=== PATIENT | female | born 2000 | race Caucasian/White ===

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

== ENCOUNTER 2021-03-25 19:43 | Outpatient (CLI) | payer MEDICAID, OTHER ==
[2021-03-25 20:09] VITALS: BP 105/59
[2021-03-25 21:02] LABS: Bacteria,Urine 2+ /HPF (Negative); Mucus,Urine FEW /HPF
[2021-03-25 21:03] LABS: Bilirubin,Urine NEG (Negative); Blood,Urine NEG (Negative); Color,Urine Yellow (Yellow); Protein,Urine <15 mg/dL mg/dL (Negative); Urobilinogen,Urine < 2.0 mg/dL (<2.0)
[2021-03-25] MEDS ORDERED: LACTATED RINGERS 1,000 ML IV ONE (21:22)
--- NOTE | 2021-03-25 22:10 | Ultrasound Report ---
ULTRASOUND OBSTETRIC LIMITED INDICATION / CLINICAL INFORMATION: cervical length. Clinical Gestational Age (GA): 24.4 weeks.days COMPARISON: 01/18/2016 FINDINGS: Cervical length measures 4.7 cm. ADDITIONAL FINDINGS: No additional findings and is very limited exam. IMPRESSION: 1. Cervical length measures 4.7 cm. Signer Name: Jose Orozco MD Signed: 03/25/2021 10:06 PM Workstation Name: [email or web address]
== END 2021-03-25 21:47 | disposition home or self-care (01) ==
LOC: TRG 19:43 → APU 19:55 → TRG 21:47
PROVIDERS: ATTEND Obstetrics & Gynecology
DX: O47.02 False labor before 37 completed weeks of gestation, second trimester (principal); Z3A.24 24 weeks gestation of pregnancy
CPT/HCPCS: 59025; 76817; 81001

== ENCOUNTER 2021-06-13 14:47 | Outpatient (CLI) | payer MEDICAID ==
[2021-06-13 15:38] VITALS: BP 124/60
[2021-06-13] MEDS ORDERED: LACTATED RINGERS 1,000 ML IV ONE (15:44)
[2021-06-13] MEDS ORDERED: LACTATED RINGERS 1,000 ML ONE (15:47)
[2021-06-13 17:26] LABS: Bacteria,Urine 2+ /HPF (Negative); Bilirubin,Urine NEG (Negative); Blood,Urine NEG (Negative); Color,Urine Yellow (Yellow); Mucus,Urine FEW /HPF; Protein,Urine <15 mg/dL mg/dL (Negative); Urobilinogen,Urine < 2.0 mg/dL (<2.0)
== END 2021-06-13 19:22 | disposition home or self-care (01) ==
LOC: TRG 14:47 → APU 14:49 → TRG 19:22
PROVIDERS: ATTEND Obstetrics & Gynecology
DX: O26.893 Other specified pregnancy related conditions, third trimester (principal); R10.9 Unspecified abdominal pain; M54.9 Dorsalgia, unspecified; Z3A.36 36 weeks gestation of pregnancy
CPT/HCPCS: 59025; 81001; 96361; 96365; J0690; J7120; 96360

== ENCOUNTER 2021-06-23 02:40 | Outpatient (CLI) | payer MEDICAID ==
[2021-06-23 03:52] VITALS: BP 120/57
== END 2021-06-23 03:59 | disposition home or self-care (01) ==
LOC: TRG 02:40 → APU 02:42 → TRG 03:59
PROVIDERS: ATTEND Obstetrics & Gynecology
DX: Z34.93 Encounter for supervision of normal pregnancy, unspecified, third trimester (principal); Z3A.37 37 weeks gestation of pregnancy
CPT/HCPCS: 59025

== ENCOUNTER 2021-06-24 14:22 | Outpatient (CLI) | payer MEDICAID ==
[2021-06-24 14:43] VITALS: BP 128/64
[2021-06-24] MEDS ORDERED: LACTATED RINGERS 1,000 ML IV ONE (15:00)
[2021-06-24 15:35] LABS: Bacteria,Urine 1+ /HPF (Negative); Bilirubin,Urine NEG (Negative); Blood,Urine NEG (Negative); Color,Urine Yellow (Yellow); Mucus,Urine FEW /HPF; Urobilinogen,Urine < 2.0 mg/dL (<2.0)
== END 2021-06-24 15:20 | disposition home or self-care (01) ==
LOC: TRG 14:22 → APU 14:24 → TRG 15:20
PROVIDERS: ATTEND Obstetrics & Gynecology
DX: O36.8130 Decreased fetal movements, third trimester, not applicable or unspecified (principal); Z3A.37 37 weeks gestation of pregnancy
CPT/HCPCS: 59025; 81001

== ENCOUNTER 2021-07-14 13:13 | Inpatient (IN) | payer MEDICAID ==
[2021-07-14] MEDS ORDERED: BUTORPHANOL 2 MG/1 ML INJ IV PRN ×2 (15:25)
[2021-07-14] MEDS ORDERED: LIDOCAINE (2%) 20 MG/1 ML VIAL 20 ML MDV INFILTRATI ONE (15:25)
[2021-07-14] MEDS ORDERED: ePHEDrine SULFATE 50 MG/1 ML INJ IV PRN ×2 (15:25→19:00)
[2021-07-14] MEDS ORDERED: MINERAL OIL 30 ML ORAL LIQD PO PRN (15:25)
[2021-07-14] MEDS ORDERED: OXYTOCIN 10 UNIT/1 ML INJ IM PRN (15:25)
[2021-07-14] MEDS ORDERED: CARBOPROST TROMETHAMINE 250 MCG/1 ML INJ IM PRN (15:25)
[2021-07-14] MEDS ORDERED: NALOXONE 0.4 MG/1 ML INJ IV PRN (15:25)
[2021-07-14] MEDS ORDERED: ACETAMINOPHEN 325 MG TAB PO PRN (15:25)
[2021-07-14] MEDS ORDERED: miSOPROStol 200 MCG TAB PR PRN (15:25)
[2021-07-14] MEDS ORDERED: TERBUTALINE 1 MG/1 ML INJ SUB-Q PRN (15:25)
[2021-07-14] MEDS ORDERED: METHYLERGONOVINE MALEATE 0.2 MG/ML VIAL IM PRN (15:25)
[2021-07-14] MEDS ORDERED: ONDANSETRON 4 MG/2 ML INJ IV PRN (15:25)
[2021-07-14] MEDS ORDERED: LOPERAMIDE 2 MG CAP PO PRN (15:25)
[2021-07-14] MEDS ORDERED: fentaNYL 100 MCG/2 ML INJ IV PRN (15:25)
[2021-07-14] MEDS ORDERED: LACTATED RINGERS 1,000 ML IV SCH (15:30)
[2021-07-14 15:51] LABS: Hematocrit 31.2 % (30.3-42.9); Hemoglobin 10.2 gm/dl (10.1-14.3); Mean Corpuscular HGB Conc 33 % (30-34); Mean Corpuscular Volume 75 fl (79-97); Platelet Count 240 K/mm3 (140-440); Red Blood Count 4.15 M/mm3 (3.65-5.03); Red Cell Distribution Width 16.5 % (13.2-15.2)
[2021-07-14] MEDS ORDERED: OXYTOCIN DRIP 30 UNITS/500 ML BAG IV SCH ×2 (16:00)
--- NOTE | 2021-07-14 16:58 | History and Physical Report ---
History of Present Illness Date of examination: 07/14/21 Date of admission: 07/14/21 13:14 Chief complaint: contractions History of present illness: Pt is a 20 year old MARYAN 07/11/21 at 40w3d who presents with regular painful contractions and advanced cervical dilation of 5 cm. She denies vaginal bleeding or leakage of fluid. She has had care at [facility] [employer] since 15 wks complicated by obesity, genital herpes without lesion or prodrome and gonorrhea and chlamydia treated with negative test of cure on 07/01/21. She is GBS negative. Past History Past Medical History: no pertinent history Past Surgical History: no surgical history [employer] History: chlamydia (treated with negative test of cure ), gonorrhea (treated with negative test of cure ), herpes Family/Genetic History: none Social history: no significant social history, smoking (former use ) - Obstetrical History Expected Date of Delivery: 07/11/21 Actual Gestation: 40 Week(s) 3 Day(s) : 3 Para: 2 Hx # Term Pregnancies: 2 Number of Pregnancies: 0 Spontaneous Abortions: 0 Induced : 0 Number of Living Children: 2 Medications and Allergies Allergies Allergy/AdvReac Type Severity Reaction Status Date / Time No Known Allergies Allergy Verified 06/12/14 20:45 Active Meds: Active Medications Acetaminophen (Acetaminophen 325 Mg Tab) 650 mg PO Q4H PRN PRN Reason: Pain, Mild (1-3) Butorphanol Tartrate (Butorphanol 2 Mg/1 Ml Inj) 1 mg IV Q2H PRN PRN Reason: Pain, Moderate(4-6) LABOR PAIN Butorphanol Tartrate (Butorphanol 2 Mg/1 Ml Inj) 2 mg IV Q2H PRN PRN Reason: Pain , Severe (7-10) Carboprost Tromethamine (Carboprost Tromethamine 250 Mcg/1 Ml Inj) 250 mcg IM ONCE PRN PRN Reason: Uterine Bleeding Ephedrine Sulfate (Ephedrine Sulfate 50 Mg/1 Ml Inj) 10 mg IV Q2M PRN PRN Reason: Hypotension Fentanyl (Fentanyl 100 Mcg/2 Ml Inj) 100 mcg IV Q2H PRN PRN Reason: Pain,Severe (7-10) LABOR PAIN Oxytocin/Sodium Chloride (Pitocin/Ns 30 Unit/500ml) 30 units in 500 mls @ 2 mls/hr IV TITR DEVIN; Protocol Lactated Ringer's (Lactated Ringers) 1,000 mls @ 125 mls/hr IV DIRECT DEVIN Oxytocin/Sodium Chloride (Pitocin/Ns 30 Unit/500ml) 30 units in 500 mls @ 40 mls/hr IV TITR DEVIN; Protocol Loperamide HCl (Loperamide 2 Mg Cap) 2 mg PO ONCE PRN PRN Reason: give with Hemabate Methylergonovine Maleate (Methylergonovine Maleate 0.2 Mg/Ml Vial) 0.2 mg IM ONCE PRN PRN Reason: Uterine Bleeding Mineral Oil (Mineral Oil 30 Ml Oral Liqd) 30 ml PO QHS PRN PRN Reason: Constipation Misoprostol (Misoprostol 200 Mcg Tab) 800 mcg IN ONCE PRN PRN Reason: Uterine Bleeding Naloxone HCl (Naloxone 0.4 Mg/1 Ml Inj) 0.1 mg IV Q2MIN PRN PRN Reason: Res Rate </= 8 or 02 SAT < 92% Ondansetron HCl (Ondansetron 4 Mg/2 Ml Inj) 4 mg IV Q8H PRN PRN Reason: Nausea And Vomiting Oxytocin (Oxytocin 10 Unit/1 Ml Inj) 10 unit IM ONCE PRN PRN Reason: Uterine Bleeding Terbutaline Sulfate (Terbutaline 1 Mg/1 Ml Inj) 0.25 mg SUB-Q ONCE PRN PRN Reason: Hyperstimulation/Hypertonicity Review of Systems All systems: negative - Vital Signs Vital signs: Vital Signs Pulse BP Pulse Ox 76 131/72 98 07/14/21 14:14 07/14/21 14:14 07/14/21 14:14 Temp Pulse Resp BP Pulse Ox 98.7 F 92 H 16 116/64 98 07/14/21 14:15 07/14/21 16:28 07/14/21 14:15 07/14/21 16:26 07/14/21 16:28 - Physical Exam Breasts: Positive: deferred Abdomen: Positive: soft (obese, gravid ) Genitourinary (Female): Positive: normal external genitalia Uterus: Positive: enlarged (gravid, obesity ) Extremities: Positive: edema (trace) - Obstetrical FHR: auscultation normal Uterine Contraction Monitor Mode: External Cervical Dilatation: 7 Cervical Effacement Percentage: 90 station: -2 Uterine Contraction Pattern: Regular Uterine Tone Measurement Phase: Resting Uterine Contraction Intensity: Strong/Firm Results Result Diagrams: 07/14/21 14:45 Abnormal lab results 07/14/21 Range/Units 14:45 MCV 75 L (79-97) fl MCH 25 L (28-32) pg RDW 16.5 H (13.2-15.2) % All other labs normal. Assessment and Plan A: IUP at 40w4d Active Labor Morbid Obesity Genital herpes without lesion or prodrome Gonorrhea and chlamydia treated with negative test of cure on 07/01/21 GBS Negative P: Admit to labor and delivery Routine admission labs AROM- meconium stained fluid- NICU aware Continue routine intrapartum care Closely monitor maternal and status
[2021-07-14] MEDS ORDERED: NALOXONE 2 MG/2 ML INJ IV PRN (19:00)
--- NOTE | 2021-07-14 19:00 | Anesthesia Consultation ---
Anesthesia Consult and Med Hx Date of service: 07/14/21 - Airway Anesthetic Teeth Evaluation: Good ROM Head & Neck: Adequate Mental/Hyoid Distance: Adequate Mallampati Class: Class II Intubation Access Assessment: Probably Good - Pulmonary Exam CTA: Yes - Cardiac Exam Cardiac Exam: RRR - Pre-Operative Health Status ASA Pre-Surgery Classification: ASA3 Proposed Anesthetic Plan: Epidural - Pulmonary Hx Asthma: No COPD: No Hx Pneumonia: No - Cardiovascular System Hx Hypertension: No - Central Nervous System Hx Seizures: No Hx Psychiatric Problems: No - Endocrine Hx Renal Disease: No Hx End Stage Renal Disease: No Hx Hypothyroidism: No Hx Hyperthyroidism: No - Hematic Hx Anemia: No Hx Sickle Cell Disease: No - Other Systems Hx Alcohol Use: No Hx Obesity: Yes
--- NOTE | 2021-07-14 19:50 | Progress Note ---
Labor Epidural - Labor Epidural Start Time: 19:21 Stop Time: 19:26 Performed by:: ZEN JOY Procedure: Patient is requesting epidural for labor pain. H&P, and labs reviewed. Procedure explained, questions answered, consent obtained. Patient in sitting position with blood pressure cuff and pulse ox on and working. Timeout performed immediately before start of procedure. Sterile chlorahexadine 0.5% prep/drape. 3 mL 1% lidocaine skin wheal at L[3]-L[4]. 17-gauge tuohy epidural needle advanced to [id number] with saline at [7] cm. 25-gauge spinal needle advanced until clear, free-flowing CSF. Intrathecal dexmedetomidine [5] mcg administered and needle removed. Epidural catheter advanced to [12] cm, negative aspiration for blood and csf, negative test dose 3 ml 1.5% lidocaine with epinephrine. Sterile sponge and tegaderm applied, followed by tape reinforcement. Patient tolerated procedure well.
[2021-07-14] MEDS ORDERED: fentaNYL-BUPIV 2 MCG/ML-0.125% 200 MCG/100 ML BAG EPIDURAL SCH (20:00)
--- NOTE | 2021-07-14 23:02 | Procedure Note ---
OB Delivery Note - Delivery Date of Delivery: 07/14/21 Surgeon: JOSSUE ALCAZAR Estimated blood loss: other (400 mL) - Vaginal Delivery presentation: vertex Delivery position: OA Intrapartum events: PROM->1hr before delivery, meconium, uterine atony (misoprostol 800 mcg per rectum ) Delivery induction: none Delivery augmentation: rupture of membranes, pitocin Delivery monitor: external FHT, external uterine Route of delivery: Delivery placenta: spontaneous Episiotomy: none Delivery laceration: 1st degree (hemostatic without repair ) Anesthesia: epidural - A at 1 minute: 8 at 5 minutes: 9 Infant Gender: Female (4100g (9lb 1oz) @ 22:40 pm)
[2021-07-15] MEDS ORDERED: BENZOCAINE/MENTHOL 20/0.5% TOP SPRAY 56 GM TP PRN (02:47)
[2021-07-15] MEDS ORDERED: diphenhydrAMINE 25 MG CAP PO PRN (02:47)
[2021-07-15] MEDS ORDERED: LANOLIN/ZINC/DIMETHICONE (LANSINOH) 7 GM TP PRN ×2 (02:47)
[2021-07-15] MEDS ORDERED: OXYTOCIN DRIP 30 UNITS/500 ML BAG IV SCH (02:47)
[2021-07-15] MEDS ORDERED: ONDANSETRON 4 MG/2 ML INJ IV PRN (02:47)
[2021-07-15] MEDS ORDERED: PROMETHAZINE 25 MG RECT SUPP PR PRN (02:47)
[2021-07-15] MEDS ORDERED: WITCH HAZEL/ GLYCERIN PAD TP PRN (02:47)
[2021-07-15] MEDS ORDERED: MAGNESIUM HYDROXIDE (MOM) ORAL LIQD UDC PO PRN (02:47)
[2021-07-15] MEDS ORDERED: PROMETHAZINE 25 MG TAB PO PRN (02:47)
[2021-07-15] MEDS: IBUPROFEN 600 MG TAB PO SCH ×2 (04:45→16:10)
--- NOTE | 2021-07-15 08:25 | Progress Note ---
Assessment and Plan - Patient Problems (1) Vaginal delivery Current Visit: Yes Status: Acute Plan to address problem: Routine care Subjective - Subjective Date of service: 07/15/21 Interval history: The patient reports some uterine cramping. Her bleeding is improving. Patient reports: appetite normal, voiding normally, pain well controlled : doing well Objective - Vital Signs Latest vital signs: Vital Signs Temp Pulse Resp BP BP Pulse Ox Pulse Ox 07/15/21 06:23 98.5 F 87 18 116/64 97 07/15/21 04:45 18 07/15/21 02:45 98.7 F 88 19 118/73 97 07/15/21 02:35 99 07/15/21 02:20 99 F 07/15/21 01:21 104 H 122/57 07/15/21 00:36 78 121/56 07/15/21 00:21 86 129/62 07/15/21 00:06 77 138/62 07/14/21 23:51 77 136/73 07/14/21 23:48 98.2 F 07/14/21 23:36 139 H 123/74 07/14/21 23:21 93 H 122/60 07/14/21 23:15 93 H 112/60 07/14/21 22:51 98 H 132/57 07/14/21 22:48 98 H 95 07/14/21 22:44 93 H 136/62 07/14/21 22:43 94 H 96 07/14/21 22:38 124 H 171/93 98 07/14/21 22:33 99 H 98 07/14/21 22:28 91 H 97 07/14/21 22:23 77 94 07/14/21 22:21 72 119/63 07/14/21 22:18 81 97 07/14/21 22:13 77 98 07/14/21 22:08 76 97 07/14/21 22:06 78 105/55 07/14/21 22:03 76 98 07/14/21 21:58 81 99 07/14/21 21:53 84 98 07/14/21 21:52 78 128/73 07/14/21 21:50 98.4 F 07/14/21 21:48 83 98 07/14/21 21:43 104 H 99 07/14/21 21:38 93 H 98 10/17/21 21:37 97 H 122/97 17/21 21:33 82 99 1721 21:28 81 99 1721 21:23 82 99 1721 21:22 78 112/59 17/21 21:18 86 100 1721 21:13 74 99 1721 21:08 86 97 1721 21:07 82 109/53 1721 21:03 81 96 1721 20:58 69 96 17/21 20:53 72 97 1721 20:51 66 90/51 17/21 20:48 75 96 17/21 20:43 78 98 1721 20:38 80 98 1721 20:36 70 98/57 17/21 20:33 68 97 1721 20:28 84 98 1721 20:23 69 97 1721 20:21 77 92/53 1721 20:18 79 98 07/14/21 20:13 72 97 1721 20:08 78 97 21 20:06 75 95/51 17/21 20:03 73 98 21 19:58 80 98 1721 19:53 79 97 1721 19:51 76 95/53 17/21 19:48 90 99 1721 19:43 79 98 1721 19:38 85 95 1721 19:37 80 105/53 94 1721 19:34 82 105/53 1721 19:33 85 95 17/21 19:30 85 116/58 17/21 19:28 95 H 98 17/21 19:27 93 H 125/69 17/21 19:26 93 H 134/72 17/21 19:23 93 H 97 17/21 19:15 99 17/21 17:56 74 125/72 17/21 16:28 92 H 98 17/21 16:26 82 116/64 17/21 16:23 87 95 17/21 16:18 90 97 17/21 16:13 80 97 07/14/21 16:08 83 96 07/14/21 16:03 78 97 07/14/21 15:58 88 97 07/14/21 15:53 88 97 07/14/21 15:52 79 124/82 07/14/21 15:45 100 07/14/21 15:19 86 97 07/14/21 15:16 94 H 94 07/14/21 15:14 93 H 97 07/14/21 15:09 92 H 97 07/14/21 15:04 82 97 07/14/21 14:59 97 H 97 07/14/21 14:54 85 98 07/14/21 14:49 91 H 97 07/14/21 14:44 98 H 97 07/14/21 14:39 92 H 98 07/14/21 14:34 84 98 07/14/21 14:29 76 98 07/14/21 14:24 93 H 98 07/14/21 14:19 97 H 99 07/14/21 14:15 98.7 F 16 98 07/14/21 14:14 86 131/72 98 Intake and Output 07/14/21 07/15/21 07/15/21 22:59 06:59 14:59 Intake Total 480 Output Total 1100 Balance -620 Intake: Intake, Free Water 480 Output: Urine 1100 Uretheral (Farooq) 400 Void 700 Other: Total, Output Amount 500 # Voids Void 1 # Bowel Movements 1 Estimated Blood Loss 400 - Labs Labs: Abnormal lab results 07/14/21 Range/Units 14:45 MCV 75 L (79-97) fl MCH 25 L (28-32) pg RDW 16.5 H (13.2-15.2) %
[2021-07-15] MEDS: HYDROcodone/ACETAMINOPHEN 5-325 MG TAB PO PRN ×2 (09:38→18:36)
[2021-07-15] MEDS: FERROUS SULFATE 325 MG TAB PO SCH ×2 (09:38→21:42)
[2021-07-15 10:28] LABS: Hematocrit 25.7 % (30.3-42.9); Hemoglobin 8.5 gm/dl (10.1-14.3)
--- NOTE | 2021-07-15 16:53 | Post Anesthesia Evaluation ---
- Post Anesthesia Evaluation Patient Participated: Yes Airway Patent: Yes Stable Respiratory Function: Yes Nausea/Vomiting: No Temp > 96.8F: Yes Pain Manageable: Yes Adequeate Hydration: Yes Anesthesia Complications: No Block Receding Appropriately: Yes
[2021-07-16] MEDS: HYDROcodone/ACETAMINOPHEN 5-325 MG TAB PO PRN ×2 (03:00→08:30)
[2021-07-16] MEDS ORDERED: MEASLES, MUMPS & RUBELLA 12,500 UNIT/0.5 ML VACCINE SUB-Q ONE (06:00)
[2021-07-16] MEDS ORDERED: TETANUS,DIPH,PERTUSS(ACELL) VACCINE 0.5 ML SYRINGE IM ONE (06:00)
[2021-07-16] MEDS: IBUPROFEN 600 MG TAB PO SCH (06:00)
--- NOTE | 2021-07-16 07:40 | Progress Note ---
Assessment and Plan A: PPD#2 s/p at term Acute iron deficiency due to blood-loss P: Continue with routine care with discharge anticipated this morning Subjective - Subjective Date of service: 07/16/21 Principal diagnosis: PPD#2 s/p at term Interval history: Patient was using the restroom during encounter. Reports decreasing lochia, some cramping and no problems with ambulation. Patient reports: appetite normal, voiding normally, pain well controlled, ambulating normally : doing well Objective - Vital Signs Latest vital signs: Vital Signs Temp Pulse Resp BP Pulse Ox Pulse Ox 07/16/21 06:00 18 07/16/21 04:00 18 07/16/21 03:00 18 07/15/21 20:00 98 07/15/21 16:39 97.9 F 81 18 119/84 98 07/15/21 12:49 98.0 F 72 18 106/68 95 07/15/21 08:44 98.2 F 76 18 113/65 97 07/15/21 08:00 99 Intake and Output 07/15/21 07/15/21 07/16/21 15:59 23:59 07:59 Intake Total 360 Output Total 300 Balance -300 360 Intake: Intake, Free Water 360 Output: Urine 300 Void 300 Other: Total, Output Amount 300 # Voids Void 1 1 2 - Labs Labs: Abnormal lab results 07/15/21 Range/Units 10:16 Hgb 8.5 L (10.1-14.3) gm/dl Hct 25.7 L (30.3-42.9) %
--- NOTE | 2021-07-16 07:42 | Discharge Summary ---
Providers - Providers Date of Admission: 07/14/21 13:14 Date of discharge: 07/16/21 Attending physician: JOSSUE ALCAZAR 07/15/21 02:47 Consult to Rn Acute [CONS] Routine Reason For Exam: assistance with , SNS Primary care physician: JOSSUE ALCAZAR Hospitalization Reason for admission: active labor, IUP at term Delivery: Episiotomy: none Laceration: 1st degree Other procedures: none complications: none Discharge diagnosis: IUP at term delivered [place] baby: female Hospital course: Patient presented to hospital in active labor and went on to have a of a viable female . Her course was uncomplicated. Condition at discharge: Good Disposition: 01 HOME / SELF CARE / HOMELESS Plan - Discharge Medications Prescriptions: Ferrous Sulfate [Feosol 325 MG tab] 325 mg PO TID 30 Days tablet Ibuprofen [Motrin 600 MG tab] 600 mg PO Q8H PRN #30 PRN Reason: Pain, Moderate (4-6) - Provider Discharge Summary Activity: routine, no sex for 6 weeks, no heavy lifting 4 weeks, no strenuous exercise Diet: routine Instructions: routine Additional instructions: [] Smoking cessation referral if applicable(refer to patient education folder for contact #) [] Refer to [facility]'s [facility] Booklet Call your doctor immediately for: * Fever > 100.5 * Heavy vaginal bleeding ( >1 pad per hour) * Severe persistent headache * Shortness of breath * Reddened, hot, painful area to leg or breast * Drainage or odor from incision. * Keep incision clean and dry at all times and follow doctor's instructions regarding bathing/showering - Follow up plan Follow up: GIL GARRETT CEPHALOMETRIC TECHNICIAN [Advanced Practice Nurse] - 14 Days
[2021-07-16] MEDS: FERROUS SULFATE 325 MG TAB PO SCH (08:32)
[2021-07-16 14:30] VITALS: BP 121/76
== END 2021-07-16 14:50 | disposition home or self-care (01) | DRG 774 ==
LOC: TRG 13:13 → LD 13:14 → APU 13:14 → LD 15:26 → TRG 15:36 → OB 07-15 02:17
PROVIDERS: ADMIT Obstetrics & Gynecology; ATTEND Obstetrics & Gynecology
PROC: 10E0XZZ Delivery of Products of Conception, External Approach (ICD-10-PCS; principal; 2021-07-14)
PROC: 3E0R3BZ Introduction of Anesthetic Agent into Spinal Canal, Percutaneous Approach (ICD-10-PCS; 2021-07-14)
PROC: 00HU33Z Insertion of Infusion Device into Spinal Canal, Percutaneous Approach (ICD-10-PCS; 2021-07-14)
PROC: 3E0234Z Introduction of Serum, Toxoid and Vaccine into Muscle, Percutaneous Approach (ICD-10-PCS; 2021-07-16)
DX: O42.02 Full-term premature rupture of membranes, onset of labor within 24 hours of rupture (principal); O98.32 Other infections with a predominantly sexual mode of transmission complicating childbirth; Z3A.40 40 weeks gestation of pregnancy; Z37.0 Single live birth; Z23 Encounter for immunization; Z20.822 Contact with and (suspected) exposure to COVID-19; B00.9 Herpesviral infection, unspecified; O99.214 Obesity complicating childbirth; E66.01 Morbid (severe) obesity due to excess calories; O77.0 Labor and delivery complicated by meconium in amniotic fluid; O62.2 Other uterine inertia; O70.0 First degree perineal laceration during delivery; O90.81 Anemia of the puerperium; D62 Acute posthemorrhagic anemia
CPT/HCPCS: 36415; 85014; 85018; 85027; 86592; 86850; 86900; 86901; 90715; G0378; J2590; J3010; J7120; U0003